=== PATIENT | male | born 1940 | race Caucasian/White ===

== ENCOUNTER 2021-03-06 04:11 | Emergency (ER) | payer MEDICARE, OTHER, SELFPAY ==
[2021-03-06] VITALS (33 sets, daily range): BP systolic 95–135; BP diastolic 42–83; PULSE 80–114; RESP 17–35; TEMP 36.6; O2SAT 87–100
--- NOTE | 2021-03-06 04:11 | ED.GENADUL_ITS ---
Discharge Plan Disposition Patient Disposition: [facility] Condition: Stable Discharge Details Clinical Impression: HCAP (healthcare-associated pneumonia), Elevated troponin, ESRD (end stage renal disease) on dialysis ED Provider: Prince Stearns Drifting Musa and New Rx's Prescriptions: No Action atorvastatin 80 mg Tablet 80 mg PO DAILY RF: 0 sevelamer HCl 800 mg Tablet 800 mg PO TID RF: 0 fluoxetine 10 mg Tablet 10 mg PO DAILY RF: 0 clopidogrel [Plavix] 75 mg Tablet 75 mg PO DAILY RF: 0 aspirin 81 mg Tablet,Delayed Release (Dr/Ec) 81 mg PO DAILY RF: 0 pantoprazole 40 mg Tablet,Delayed Release (Dr/Ec) 40 mg PO DAILY RF: 0 calcitriol 0.5 mcg Capsule 0.5 mcg PO QMWF RF: 0 albuterol 90 mcg/actuation Aerosol 90 mcg INHALATION Q4H RF: 0 Senna Plus (senna-docusate) Tablet 2 tab PO BID RF: 0 gabapentin 300 mg Tablet 300 mg PO QHS RF: 0 sacubitril-valsartan 49-51 mg Tablet 0.5 tab PO BID RF: 0 metoprolol succinate 25 mg Capsule,Sprinkle,Er 24hr 25 mg PO DAILY RF: 0 Glucosamine Chondroitin 550-30-1 mg Capsule 1 cap PO DAILY RF: 0 hydromorphone 2 mg Tablet 2 mg PO Q6H RF: 0 acetaminophen 325 mg Capsule 325 mg PO PRN PRN (Reason: Pain) RF: 0 ondansetron HCl 4 mg Tablet 4 mg PO Q12H PRNRF: 0 magnesium hydroxide 400 mg/5 mL Suspension 400 mg PO QHS PRNRF: 0 Fleet Enema 19-7 gram/118 mL Enema 118 ml CO PRN PRNRF: 0 nitroglycerin 0.4 mg Tablet, Sublingual 0.4 mg SUBLINGUAL Q5-15M PRNRF: 0 polyethylene glycol Powder 17 pwd MISCELLANEOUS BID PRNRF: 0 ipratropium bromide 17 mcg/actuation Hfa Aerosol Inhaler 2 puff INHALATION Q8H RF: 0 fentanyl 12 mcg/hr Patch 72 Hour 1 patch TRANSDERMAL Q72H RF: 0 melatonin 3 mg Capsule 3 mg PO HS PRNRF: 0 Medical Decision Making Patient presenting to ED with respiratory difficulty. Is definitely tachypneic with diffuse rhonchi throughout but is not in distress and has O2 saturations in the low 90s on nasal cannula. He did have dialysis yesterday. He has had a recent NSTEMI. He has developed a cough but denies fever. Differential includes recurrent TX, CHF, pneumonia, fluid overload. EKG, portable chest x-ray, Covid swab, laboratory studies ordered. Will hold off on fluids given recent NSTEMI, need for dialysis, normal blood pressure at this time. Nursing unable to establish peripheral line. Ultrasound-guided IV placed by me in the right antecubital fossa. Patient tolerated well. EKG is 100% paced. Portable chest x-ray per my review shows right upper lobe infiltrate. White count is elevated. Hemoglobin around 9. Chemistries unremarkable. Troponin positive at 0.8 but unknown if persistently elevated due to end-stage renal disease versus new NSTEMI. Patient not complaining of chest pain or pressure. We will go ahead and give aspirin. Awaiting to get discharge paperwork from the OR system as well as discuss with OR for transfer and management there is we are unable to provide dialysis here. 6AM - Case discussed with medicine team at the OR in [place]. Patient had been admitted there last month for failure to thrive but sustained non-STEMI while admitted. Catheterization was done in [place] which showed right- sided disease but inability to stent and managed medically. He was discharged to rehab 2 days ago. Now appears to have HCAP and possibility of recurrent NSTEMI though troponin is only slightly positive here and 0.8. Patient is ordered for Zosyn, Levaquin, vancomycin and blood cultures have been drawn. Aspirin given. Covid test has come back negative. Patient accepted for admission at the OR in [place] for management of pneumonia and end-stage renal disease requiring dialysis. HPI General Mode of arrival: EMS . Date/Time Provider Initiated Documentation: 03/06/21 04:20 . Limitations to Documentation: no limitations . Information obtained by: patient, EMS and RN notes reviewed . HPI Narrative: Patient presents to the ED from [facility] across the street with respiratory difficulty. Patient was recently admitted to ECF after admission at the OR due to NSTEMI. He has been having increased difficulty breathing since dinnertime. Reports cough for the last day or 2. Denies fever. He denies any chest pain or pressure. He is a dialysis patient and received dialysis yesterday. He has some nausea and is actively dry heaving here but denies any abdominal or back pain. EMS report O2 saturations on room air to be 87 to 88%. On 2 L he is in the low 90s. Does not typically require oxygen. Related Data Home Medications Medication Instructions Recorded Confirmed acetaminophen 325 mg PO PRN PRN 03/06/21 03/06/21 albuterol 90 mcg INHALATION Q4H 03/06/21 03/06/21 aspirin 81 mg PO DAILY 03/06/21 03/06/21 atorvastatin 80 mg PO DAILY 03/06/21 03/06/21 calcitriol 0.5 mcg PO QMWF 03/06/21 03/06/21 clopidogrel [Plavix] 75 mg PO DAILY 03/06/21 03/06/21 fentanyl 1 patch TRANSDERMAL Q72H 03/06/21 03/06/21 fluoxetine 10 mg PO DAILY 03/06/21 03/06/21 gabapentin 300 mg PO QHS 03/06/21 03/06/[address] glucos sul [id number] 1 cap PO DAILY 03/06/21 03/06/21 [Glucosamine Chondroitin] hydromorphone 2 mg PO Q6H 03/06/21 03/06/21 ipratropium bromide 2 puff INHALATION Q8H 03/06/21 03/06/21 magnesium hydroxide 400 mg PO QHS PRN 03/06/21 03/06/21 melatonin 3 mg PO HS PRN 03/06/21 03/06/21 metoprolol succinate 25 mg PO DAILY 03/06/21 03/06/21 nitroglycerin 0.4 mg SUBLINGUAL Q5-15M PRN 03/06/21 03/06/21 ondansetron HCl 4 mg PO Q12H PRN 03/06/21 03/06/21 pantoprazole 40 mg PO DAILY 03/06/21 03/06/21 polyethylene glycol 17 pwd MISCELLANEOUS BID PRN 03/06/21 03/06/21 sacubitril-valsartan 0.5 tab PO BID 03/06/21 03/06/21 senna-docusate sodium [Senna Plus 2 tab PO BID 03/06/21 03/06/21 (senna-docusate)] sevelamer HCl 800 mg PO TID 03/06/21 03/06/21 sodium phosphates [Fleet Enema] 118 ml CO PRN PRN 03/06/21 03/06/21 Allergies Allergy/AdvReac Type Severity Reaction Status Date / Time testosterone [From Androderm] Allergy Other (See Unverified 03/06/21 05:09 Comment) Review of Systems Narrative: 04/02 Review of Systems completed and is negative except as stated above in HPI (Systems reviewed: Const, Eyes, ENT, Resp, CV, GI, , MSK, Skin, Neuro) [facility] Medical History (Updated 03/06/21 @ 06:34 by Prince Stearns MD) Atherosclerosis End stage renal disease Essential hypertension Failure to thrive in adult Gangrene Non-STEMI (non-ST elevated myocardial infarction) PVD (peripheral vascular disease) Type 2 diabetes mellitus Surgical History Pacemaker Social History Smoking/Tobacco Use Status: Never Smoking risk assessment performed?: Yes Alcohol Intake: former Drug use: Never Substance use type: does not use Additional Social history: pt [facility]; formerly lives in [place]; comes to visit him Exam Narrative Exam Narrative: Const: WDWN elderly male in NAD. HEENT: NC/AT. Normal facial exam. Eyes: Normal conjunctiva and sclera. Neck: Supple. Trachea midline. Lungs: Tachypneic but not in distress. Diffuse rhonchi throughout. Cor: RRR without murmur/gallop. Good radial pulses. GI: Soft. NT/ND. No guarding or rebound. Neuro: A+O x 3. Normal speech, mentation. Cranial nerves II - XII grossly intact. No gross motor or sensory deficit. Ext: No C/C/E. Skin: Warm and dry without rash. Pale. Procedures EJ/Peripheral Line Arm R: Time Out Performed: Yes Skin Cleansed in Sterile Fashion: Yes Size (gauge): 18 IV Secured and Dressing Applied: Yes Patient Tolerated Procedure: well Additional Comments: U/S guided peripheral placement Critical Care Time Critical Care Time Critical Care Time: Yes Total Critical Care Time: 45 Attestation: Upon my evaluation, this patient had a high probability of imminent or life- threatening deterioration, which required my direct attention, intervention, and personal management. I have personally provided 45 minutes of critical care time exclusive of time spent on separately billable procedures. Time includes review of laboratory data, radiology results, discussion with consultants, and monitoring for potential decompensation. Interventions were performed as documented above.
--- NOTE | 2021-03-06 04:15 | DI.RAD_ITS ---
Exam(s) XR PORTABLE CHEST AP EXAM: XR PORTABLE CHEST AP CLINICAL HISTORY: SOB TECHNIQUE: 2D digital imaging was performed of the chest. One view was obtained. An AP view was obt ained. COMPARISON: No exams were available for comparison FINDINGS: MEDIASTINUM: Normal. HEART: Normal. PULMONARY VASCULATURE: Pulmonary venous congestion. LUNGS: Bilateral predominantly perihilar infiltrates. PLEURAL SPACE: No pleural effusion or pneumothorax. BONE:Within normal limits for the patient's age. OTHER FINDINGS:Poor inspiratory effort. There is a tunneled right IJ catheter in good position. Tra nsvenous pacemaker leads are in place. IMPRESSION: Findings most suggestive of congestive heart failure. Underlying infectious or inflammatory process cannot be excluded. DATA REPOSITORY: RADIATION DOSE DELIVERED:
--- NOTE | 2021-03-06 04:15 | RT.EKG_ITS ---
APPROVED REPORT Exam: Resting ECG Reason for Exam: SOB Patient Location: E HR:106 bpm ECG Measurements Heart Rate 106 AXIS ME 158 P 0 QRSd 165 QRS -63 QT 470 T 103 QTc 625 Conclusion Ventricular-paced rhythm I have reviewed and interpreted ECG and agree with software generated interpretation.
[2021-03-06 05:05] LABS: Source Nasal/Nares
[2021-03-06 05:07] LABS: Abs Immature Grans 0.11 10^3/uL (0.0-0.06); Absolute Basophil Count 0.02 10^3/uL (0.0-0.2); Basophils % 0.1; HCT 31.1 % (40.0-50.0); HGB 9.5 g/dL (13.5-17.5); Immature Grans % 0.6; Lymphocytes % 4.3; MCH 31.3 pg (27.0-33.0); MCHC 30.5 % (32.0-36.0); MCV 102.3 fL (80-95); MPV 9.7 fL (8.0-11.0); Monocytes % 6.1; Neutrophils % 88.9; Nucleated RBC 0 %; Platelet Count 483 10^3/uL (130-400); RBC 3.04 10^6/uL (4.36-5.78); RDW 16.6 % (11.8-14.1); RDW-SD 62.1 fL; WBC 17.64 10^3/uL (4.4-10.8)
[2021-03-06 05:12] LABS: Absolute Lymphocyte Count 0.76 10^3/uL (1.2-3.4); Absolute Monocyte Count 1.08 10^3/uL (0.1-0.8); Absolute Neutrophil Count 15.68 10^3/uL (1.2-6.7)
[2021-03-06 05:26] LABS: ALT 20 U/L (16-63); AST 34 U/L (15-37); Albumin 2.4 g/dL (3.4-5.0); Alkaline Phosphatase 103 U/L (46-116); Anion Gap 13.5 mmol/L (3-11); BUN 23 mg/dL (7-18); Bilirubin, Total 0.4 mg/dL (0.2-1.0); CO2 25.5 mmol/L (21.0-32.0); CREATININE 2.6 mg/dL (0.70-1.30); Calcium 9.2 mg/dL (8.5-10.1); Chloride 97 mmol/L (98-107); Estimated GFR 23.81 (mL/min/1.73m2); Glucose 310 mg/dL (74-106); Potassium 4.7 mmol/L (3.5-5.1); Sodium 136 mmol/L (136-145); Total Protein 7.3 g/dL (6.4-8.2)
[2021-03-06 05:28] LABS: Troponin I 0.86 ng/mL (<0.06)
[2021-03-06 05:56] LABS: COVID-19 PCR Negative (Negative)
--- NOTE | 2021-03-06 06:13 | DI.VRAD_ITS ---
PROCEDURE INFORMATION: Exam: XR Chest Exam date and time: 03/06/2021 4:23 AM Age: 80 years old Clinical indication: Shortness of breath; Patient HX: SOB TECHNIQUE: Imaging protocol: XR of the chest. Views: 1 view. COMPARISON: No relevant prior studies available. FINDINGS: Tubes, catheters and devices: Right internal jugular hemodialysis catheter lies at cavoatrial junction in good position. A pacemaker device is present, and its leads are in appropriate position. Lungs: There is pulmonary venous congestion. There is diffuse interstitial edema. Underlying inflammatory or infectious process not excluded. Pleural spaces: There are no pleural effusions. No evidence of pneumothorax. Heart/Mediastinum: The heart is enlarged. There is prominence of the mediastinum. Probable congestive heart failure. Underlying inflammatory or infectious process not excluded. Bones/joints: The skeletal structures and soft tissues show no evidence of fracture or other acute processes. The skeletal structures and soft tissues show no evidence of fracture or other acute processes. Moderate degenerative changes of the thoracolumbar spine. Soft tissues: The soft tissues of the extrathoracic region are unremarkable. The soft tissues of the extrathoracic region are unremarkable. IMPRESSION: Probable congestive heart failure. Underlying inflammatory or infectious process not excluded. Dictated and Authenticated by: Delvin Villatoro MD. Ordering:VETO Morrison MD
[2021-03-06] MEDS: Aspirin 81 MG CHEW 324 MG CH (06:18)
[2021-03-06] MEDS: PIPERACILLIN/TAZO 2.25 GM in Normal Saline 50 ML IVPB (06:19)
[2021-03-06] MEDS: levoFLOXacin 750 MG/150 ML BAG 100 MG IVPB (07:21)
== END 2021-03-06 07:27 | disposition short-term general hospital (02) ==
PROVIDERS: Emergency Provider Emergency Medicine
DX: J18.8 Other pneumonia, unspecified organism (principal); Y95 Nosocomial condition; R79.89 Other specified abnormal findings of blood chemistry; R06.82 Tachypnea, not elsewhere classified; I12.0 Hypertensive chronic kidney disease with stage 5 chronic kidney disease or end stage renal disease; N18.6 End stage renal disease; Z99.2 Dependence on renal dialysis; E11.22 Type 2 diabetes mellitus with diabetic chronic kidney disease; Z20.822 Contact with and (suspected) exposure to COVID-19; Z03.818 Encounter for observation for suspected exposure to other biological agents ruled out
CPT/HCPCS: 36415; 80053; 87040; 87635; 93005; 96365; 96375; 99291; 71045; 83735; 84484; 85025; 93010; J1956; J2543

== ENCOUNTER 2021-04-17 16:59 | Outpatient (REF) | payer SELFPAY ==
[2021-04-17 17:35] LABS: Abs Immature Grans 0.04 10^3/uL (0.0-0.06); Absolute Basophil Count 0.02 10^3/uL (0.0-0.2); Absolute Eosinophil Count 0.08 10^3/uL (0.0-0.7); Absolute Lymphocyte Count 1.26 10^3/uL (1.2-3.4); Absolute Neutrophil Count 5.93 10^3/uL (1.2-6.7); Basophils % 0.2; Eosinophils % 0.9; HCT 32.8 % (40.0-50.0); Immature Grans % 0.5; Lymphocytes % 14.9; MCH 28.5 pg (27.0-33.0); MCHC 30.5 % (32.0-36.0); MCV 93.4 fL (80-95); MPV 10.9 fL (8.0-11.0); Neutrophils % 70.5; Nucleated RBC 0 %; RBC 3.51 10^6/uL (4.36-5.78); RDW 18.2 % (11.8-14.1); RDW-SD 62.2 fL; WBC 8.43 10^3/uL (4.4-10.8)
[2021-04-17 17:37] LABS: Diff Comment PLT Morph Reviewed; RBC Morphology Normal
[2021-04-17 17:43] LABS: Platelet Count 260 10^3/uL (130-400)
[2021-04-17 17:49] LABS: ALT 15 U/L (16-63); AST 25 U/L (15-37); Albumin 2.3 g/dL (3.4-5.0); Alkaline Phosphatase 117 U/L (46-116); Anion Gap 7.5 mmol/L (3-11); BUN 22 mg/dL (7-18); Bilirubin, Total 0.4 mg/dL (0.2-1.0); CO2 31.5 mmol/L (21.0-32.0); CREATININE 2.8 mg/dL (0.70-1.30); Chloride 102 mmol/L (98-107); Estimated GFR 21.86 (mL/min/1.73m2); Glucose 126 mg/dL (74-106); Potassium 3.8 mmol/L (3.5-5.1); Sodium 141 mmol/L (136-145)
[2021-04-17 18:16] LABS: NT-proBNP > 35000 pg/mL (<300)
== END 2021-04-17 17:00 | disposition home or self-care (01) ==
LOC: LBN 16:59
PROVIDERS: Visit Provider Nurse Practitioner Family
DX: I10 Essential (primary) hypertension (principal); E11.9 Type 2 diabetes mellitus without complications; N18.6 End stage renal disease; I50.9 Heart failure, unspecified
CPT/HCPCS: 80053; 83036; 83880; 85025